=== PATIENT | female | born 1980 | race Caucasian/White ===

== ENCOUNTER → 2016-08-09 | Outpatient (CLI) | payer OTHER ==
[2016-08-09 19:19] LABS: PROLACTIN 13.3 NG/ML
[2016-08-10 14:13] LABS: HIV SCRN NEGATIVE (NEGATIVE); HIV SCRN1 NEGATIVE (NEGATIVE)
[2016-08-10 14:14] LABS: CONTROL LINE INT CTR LINE PRESENT
== END ==
LOC: M WUC 13:00
PROVIDERS: ATTEND Nurse Practitioner Women's Health
DX: Z11.3 Encounter for screening for infections with a predominantly sexual mode of transmission (principal); N92.1 Excessive and frequent menstruation with irregular cycle

== ENCOUNTER 2016-08-26 15:47 | Emergency (ER) | payer OTHER ==
[~2016-08-26] VITALS: Ht 165.1 cm; Wt 74.8 kg
[2016-08-26] MEDS ORDERED: TOPA50TA7 PO (15:56)
[2016-08-26] MEDS ORDERED: CITA20TA4 PO (15:56)
[2016-08-26] MEDS ORDERED: TRAZ100T4 PO (15:56)
[2016-08-26 17:34] VITALS: BP 116/81
[2016-08-26] MEDS ORDERED: DICL75TA PO (17:48)
--- NOTE | 2016-08-26 17:56 | REP ---
Clinical: Lower back pain. Technique: AP, lateral, bilateral oblique and coned-down views of the lumbosacral spine. Findings: The moderate degenerative changes of the visualized lower thoracic spine including anterior spurring and endplate sclerosis/disc space narrowing. The lumbar spine demonstrates satisfactory alignment with minimal multilevel endplate sclerosis as well as mild hypertrophic facet changes at the L5-S1 level. There is no evidence for acute fracture / compression injury or subluxation. Impression: Degenerative changes. No acute fracture / compression injury or subluxation. Signed by Mike Oquendo MD 08/26/2016 05:47 P
== END 2016-08-26 17:56 | disposition home or self-care (01) ==
LOC: M ED 17:20
DX: M54.5 Low back pain (principal); R51 Headache; Z79.899 Other long term (current) drug therapy; Z87.891 Personal history of nicotine dependence

== ENCOUNTER 2016-12-06 21:10 | Emergency (ER) | payer OTHER ==
[~2016-12-06] VITALS: Ht 165.1 cm; Wt 74.1 kg
[~2016-12-06 21:10] MED LIST: CITA20TA4 PO; DICL75TA PO; TOPA50TA8 PO; TRAZ-136 PO
[2016-12-06] MEDS ORDERED: NS 1,000 ML IV SCH (22:19)
[2016-12-06 22:46] LABS: BASO % 0.8 % (0.0-1.0); EOS # 0.1 K/mm3 (0.0-0.50); EOS % 1.9 % (0.0-3.0); LARGE UNSTAINED CELL # 0.1 K/mm3 (0.0-0.4); LARGE UNSTAINED CELL % 1.9 % (0.0-4.0); LYMPH # 2.3 K/mm3 (1.5-4.5); LYMPH % 34.7 % (24.0-44.0); MEAN CORPUSCULAR HEMOGLOBIN 30.1 pg (27.0-33.0); MEAN CORPUSCULAR HGB CONC 33.5 g/dl (32.0-36.5); MEAN CORPUSCULAR VOLUME 89.7 fl (80.0-96.0); MONO # 0.5 K/mm3 (0.0-0.8); MONO % 7.9 % (0.0-5.0); NEUTROPHILS # 3.3 K/mm3 (1.8-7.7); NEUTROPHILS % 52.9 % (36.0-66.0); PLATELET COUNT, AUTOMATED 285 k/mm3 (150-450); RED CELL DISTRIBUTION WIDTH 12.6 % (11.5-14.5); WHITE BLOOD COUNT 6.2 K/mm3 (4.0-10.0)
[2016-12-06 22:47] LABS: CONTROL LINE UCG INT CTR LINE PRESENT
[2016-12-06 23:13] LABS: ALBUMIN 4.1 GM/DL (3.2-5.2); ALBUMIN/GLOBULIN RATIO 1.37 (1.00-1.93); ALKALINE PHOSPHATASE 62 U/L (45-117); ALT/SGPT 26 U/L (12-78); ANION GAP 6 MEQ/L (8-16); AST/SGOT 13 U/L (15-37); BILIRUBIN,DIRECT < 0.1 MG/DL (0.0-0.2); BILIRUBIN,TOTAL 0.2 MG/DL (0.2-1.0); BLOOD UREA NITROGEN 17 MG/DL (7-18); CALCIUM LEVEL 8.4 MG/DL (8.5-10.1); CARBON DIOXIDE LEVEL 24 MEQ/L (21-32); CHLORIDE LEVEL 109 MEQ/L (98-107); CREATININE FOR GFR 0.77 MG/DL (0.55-1.02); GLOMERULAR FILTRATION RATE > 60.0 (>60); GLUCOSE, FASTING 101 MG/DL (70-105); POTASSIUM SERUM 3.6 MEQ/L (3.5-5.1); SODIUM LEVEL 139 MEQ/L (136-145); TOTAL PROTEIN 7.1 GM/DL (6.4-8.2)
[2016-12-06] MEDS ORDERED: ISOVUE-370 76% 100ML VIAL (Q9967) As Ordered ONE (23:42)
--- NOTE | 2016-12-07 | REPUSA ---
CT of the abdomen and pelvis with contrast Clinical statement: Pain. Technique: Multiple axial CT images were obtained from the base of the lungs through the floor of the pelvis utilizing 5 mm axial slices after administration of nonionic intravenous contrast. Coronal an d sagittal reconstructions were also obtained. Comparison: None. Findings: Chest: The visualized lung bases are clear. Abdomen: The liver, spleen, pancreas, kidneys, gallbladder, and adrenal glands are unremarkable. The aorta is within normal limits. There is no evidence of abdominal lymphadenopathy or ascites. Pelvis: There is focal bowel wall thickening and inflammation surrounding a diverticulum in the proxi mal sigmoid colon. There is no evidence of perforation or abscess. There is no evidence of bowel obst ruction. The urinary bladder is within normal limits. The other pelvic structures appear grossly inta ct. There is no evidence of pelvic lymphadenopathy or ascites. Bones: There are no suspicious osseous abnormalities seen. Impression: Small focus of acute sigmoid diverticulitis as described. No evidence of abscess or perfo ration.
[2016-12-07] MEDS ORDERED: CIPR-249 PO (00:21)
[2016-12-07] MEDS ORDERED: FLAG500T PO (00:21)
[2016-12-07 00:23] VITALS: BP 92/53
[2016-12-07] MEDS ORDERED: metroNIDAZOLE (FLAGYL) 500 MG TAB PO ONE (00:30)
[2016-12-07] MEDS ORDERED: CIPROFLOXACIN 500 MG TAB PO ONE (00:30)
== END 2016-12-07 00:33 | disposition home or self-care (01) ==
LOC: M ED 21:10
DX: K57.32 Diverticulitis of large intestine without perforation or abscess without bleeding (principal); F41.9 Anxiety disorder, unspecified; Z79.899 Other long term (current) drug therapy
CPT/HCPCS: 74177; 80048; 80076; 83690; 84703; 85025; 99283; Q9967

== ENCOUNTER 2017-05-06 11:37 | Day surgery (SDC) | payer OTHER ==
[~2017-05-06] VITALS: Ht 165.1 cm; Wt 71.2 kg
[~2017-05-06 11:37] MED LIST changes: +CIPR-249 PO; +ECHI125C PO; +FLAG500T PO; +PROBCAP4 PO; +VITA100067 PO; +VITA100072 PO; +VITA500T PO
[2017-05-06] MEDS ORDERED: NS 1,000 ML IV ONE (12:00)
[2017-05-06] MEDS ORDERED: LIDOCAINE 2% INJ 100 MG/5 ML SDV (FOR ANES.) As Ordered ONE (13:17)
[2017-05-06] MEDS ORDERED: PROPOFOL 200 MG/20 ML VIAL As Ordered ONE (13:17)
--- NOTE | 2017-05-06 14:00 | ROOR ---
Patient Name: Maria Elena Linn Procedure Date: 05/06/2017 1:11 PM Date of : 1980 Age: 36 Room: [facility] Gender: Female Note Status: Finalized Procedure: Colonoscopy Indications: Evaluation on imaging study of clinically significant abnormality, Abnormal CT of the GI tract Providers: Dylan Berger MD Referring MD: BE CRUZ Requesting Provider: Medicines: Monitored Anesthesia Care Complications: No immediate complications. Procedure: Pre-Anesthesia Assessment: - Prior to the procedure, a History and Physical was performed, and patient medications and allergies were reviewed. The patient is competent. The risks and benefits of the procedure and the sedation options and risks were discussed with the patient. All questions were answered and informed consent was obtained. Patient identification and proposed procedure were verified by the physician, the nurse and the anesthesiologist in the procedure room. Mental Status Examination: alert and oriented. Airway Examination: normal oropharyngeal airway and neck mobility. Respiratory Examination: clear to auscultation. CV Examination: normal. Prophylactic Antibiotics: The patient does not require prophylactic antibiotics. Prior Anticoagulants: The patient has taken no previous anticoagulant or antiplatelet agents. ASA Grade Assessment: II - A patient with mild systemic disease. After reviewing the risks and benefits, the patient was deemed in satisfactory condition to undergo the procedure. The anesthesia plan was to use monitored anesthesia care (MAC). Immediately prior to administration of medications, the patient was re-assessed for adequacy to receive sedatives. The heart rate, respiratory rate, oxygen saturations, blood pressure, adequacy of pulmonary ventilation, and response to care were monitored throughout the procedure. The physical status of the patient was re-assessed after the procedure. The Colonoscope was introduced through the anus and advanced to the terminal ileum, with identification of the appendiceal orifice and IC valve. The colonoscopy was performed without difficulty. The patient tolerated the procedure well. The quality of the bowel preparation was good. The ileocecal valve, appendiceal orifice, and rectum were photographed. Scope insertion time was 3 minutes. Scope withdrawal time was 8 minutes. The total duration of the procedure was 12 minutes. Findings: The perianal and digital rectal examinations were normal. The terminal ileum appeared normal. Multiple small and large-mouthed diverticula were found from sigmoid to descending colon. Teresa-diverticular erythema was seen. There was no evidence of diverticular bleeding. External and internal hemorrhoids were found during retroflexion. The hemorrhoids were small. Impression: - The examined portion of the ileum was normal. - Moderate diverticulosis from sigmoid to descending colon. Teresa-diverticular erythema was seen. There was no evidence of diverticular bleeding. - External and internal hemorrhoids. - No specimens collected. Recommendation: - Patient has a contact number available for emergencies. The signs and symptoms of potential delayed complications were discussed with the patient. Return to normal activities tomorrow. Written discharge instructions were provided to the patient. - High fiber diet. - Continue present medications. - Repeat colonoscopy at age 49 for screening purposes. No routine follow up in GI clinic. - Return to primary care physician. Dylan Berger MD Dylan Berger MD 05/06/2017 2:00:34 PM This report has been signed electronically. Number of Addenda: 0 Note Initiated On: 05/06/2017 1:11 PM Estimated Blood Loss: Estimated blood loss: none.
[2017-05-06 14:05] VITALS: BP 129/80
== END 2017-05-06 14:20 | disposition home or self-care (01) ==
LOC: M OPP 11:37
PROVIDERS: ATTEND Internal Medicine Gastroenterology
DX: R93.3 Abnormal findings on diagnostic imaging of other parts of digestive tract (principal); K57.30 Diverticulosis of large intestine without perforation or abscess without bleeding; K64.8 Other hemorrhoids; Z79.899 Other long term (current) drug therapy

== ENCOUNTER → 2017-08-29 | Outpatient (CLI) | payer OTHER ==
[2017-08-31 08:06] LABS: HEPATITIS BE ANTIGEN Negative (Negative)
[2017-08-31 11:38] LABS: HEPATITIS C VIRUS ABY INDEX 0.1 INDEX (<0.8)
[2017-08-31 11:38] LABS: HIV 1&2 SCREEN CENTAUR NEGATIVE (NEGATIVE)
== END ==
LOC: M WUC 17:59
DX: Z11.3 Encounter for screening for infections with a predominantly sexual mode of transmission (principal)
CPT/HCPCS: 87350

== ENCOUNTER → 2017-08-30 | Outpatient (REF) | payer OTHER ==
[2017-08-30 19:42] LABS: BASO # 0.1 10^3/uL (0.0-0.2); BASO % 0.8 % (0.0-1.0); EOS # 0.1 10^3/uL (0.0-0.50); EOS % 0.9 % (0.0-3.0); HEMOGLOBIN 12.8 g/dl (12.0-15.5); IMMATURE GRANULOCYTE % 0.3 % (0-3.0); LYMPH % 30.7 % (24.0-44.0); MEAN CORPUSCULAR HEMOGLOBIN 29.8 pg (27.0-33.0); MEAN CORPUSCULAR HGB CONC 33.7 g/dl (32.0-36.5); MEAN CORPUSCULAR VOLUME 88.6 fl (80.0-96.0); MONO # 0.5 10^3/uL (0.0-0.8); MONO % 7.7 % (0.0-5.0); NEUTROPHILS # 3.8 10^3/uL (1.8-7.7); NEUTROPHILS % 59.6 % (36.0-66.0); PLATELET COUNT, AUTOMATED 282 10^3/uL (150-450); RED BLOOD COUNT 4.29 10^6/uL (4.00-5.40); RED CELL DISTRIBUTION WIDTH 12.6 % (11.5-14.5); WHITE BLOOD COUNT 6.4 10^3/uL (4.0-10.0)
[2017-08-30 20:35] LABS: ALBUMIN 4.3 GM/DL (3.2-5.2); ALBUMIN/GLOBULIN RATIO 1.26 (1.00-1.93); ALKALINE PHOSPHATASE 54 U/L (45-117); ALT/SGPT 21 U/L (12-78); ANION GAP 7 MEQ/L (8-16); AST/SGOT 11 U/L (7-37); BILIRUBIN,TOTAL 0.3 MG/DL (0.2-1.0); BLOOD UREA NITROGEN 14 MG/DL (7-18); CALCIUM LEVEL 8.5 MG/DL (8.5-10.1); CARBON DIOXIDE LEVEL 21 MEQ/L (21-32); CHLORIDE LEVEL 113 MEQ/L (98-107); CREATININE FOR GFR 0.81 MG/DL (0.55-1.30); GLOMERULAR FILTRATION RATE > 60.0 (>60); GLUCOSE, FASTING 89 MG/DL (70-100); POTASSIUM SERUM 3.9 MEQ/L (3.5-5.1); SODIUM LEVEL 141 MEQ/L (136-145); TOTAL PROTEIN 7.7 GM/DL (6.4-8.2)
== END ==
LOC: M LABNEURO 13:13
DX: F43.22 Adjustment disorder with anxiety (principal)

== ENCOUNTER → 2017-10-27 | Outpatient (CLI) | payer OTHER ==
[2017-10-27 20:34] LABS: ERYTHROCYTE SEDIMENTATION RATE 6 mm/hr (0-20)
[2017-10-27 20:43] LABS: COMPLEMENT C3 106 MG/DL (90-180)
[2017-10-27 20:43] LABS: COMPLEMENT C4 21.9 MG/DL (10-40); RHEUMATOID FACTOR QUANT < 10.0 IU/ML (<15.0)
[2017-11-01 00:07] LABS: COMPLEMENT TOTAL (CH50) 52 U/mL (>41)
[2017-11-01 07:23] LABS: DRVV SCREEN 38.3 SEC
[2017-11-01 07:27] LABS: PTT LUPUS TYPE ANTICOAG SCREEN 0.9 (0-1.2)
[2017-11-01 14:13] LABS: ANA (HEP2) Positive (.); ANTI DOUBLE STRAND-DNA AB 1 IU/mL (0-9); ANTI-HISTONE ANTIBODIES 0.3 Units (0.0-0.9); ANTINUCLEAR ANTIBODIES DIRECT Negative (Negative); BETA-2 GLYCOPROTEIN I ABY IGA <9 (0-25); BETA-2 GLYCOPROTEIN I ABY IGG <9 (0-20); BETA-2 GLYCOPROTEIN I ABY IGM <9 (0-32); CARDIOLIPIN IGA ANTIBODY <9 APL U/mL (0-11); CARDIOLIPIN IGG ANTIBODY <9 GPL U/mL (0-14); CARDIOLIPIN IGM ANTIBODY <9 MPL U/mL (0-12); CYCLIC CITRULLINATED PEPTIDE 8 units (0-19); RNP ANTIBODIES 0.3 AI (0.0-0.9); SJOGREN'S ANTI SS-A <0.2 AI (0.0-0.9); SJOGREN'S ANTI SS-B <0.2 AI (0.0-0.9); SMITH ANTIBODIES <0.2 AI (0.0-0.9)
== END ==
LOC: M WUC 18:20
DX: G43.909 Migraine, unspecified, not intractable, without status migrainosus (principal)
CPT/HCPCS: 86255

== ENCOUNTER 2017-12-25 18:49 | Emergency (ER) | payer OTHER ==
[2017-12-25] MEDS: AZITHROMYCIN 250 MG TAB PO (19:52)
== END 2017-12-25 20:04 | disposition home or self-care (01) ==
LOC: M ED 18:49
DX: J20.9 Acute bronchitis, unspecified (principal); F33.9 Major depressive disorder, recurrent, unspecified; Z88.0 Allergy status to penicillin
CPT/HCPCS: 99283

== ENCOUNTER 2018-02-09 16:43 | Emergency (ER) | payer OTHER | END 2018-02-09 18:29 | disposition home or self-care (01) | LOC: M ED 16:43 | DX: M43.06 Spondylolysis, lumbar region (principal); F41.9 Anxiety disorder, unspecified; R51 Headache; Z79.899 Other long term (current) drug therapy; Z88.0 Allergy status to penicillin | CPT/HCPCS: 72110 ==

== ENCOUNTER 2018-10-18 18:05 | Emergency (ER) | payer OTHER ==
[~2018-10-18] VITALS: Ht 165.1 cm; Wt 70.5 kg
[~2018-10-18 18:05] MED LIST changes: +BENZ200C70 PO; -CITA20TA4 PO; +CITA20TA6 PO; +KETO10TAB PO; -TRAZ-136 PO; +TRAZ-163 PO; +VALI5TAB PO; +VENTAER INH; +VITA100018 PO; -VITA100072 PO; +ZITHTAB PO
[2018-10-18 20:03] LABS: BASO # 0.1 10^3/uL (0.0-0.2); BASO % 0.7 % (0.0-1.0); EOS # 0.1 10^3/uL (0.0-0.50); EOS % 0.7 % (0.0-3.0); HEMATOCRIT 38.1 % (36.0-47.0); HEMOGLOBIN 12.9 g/dl (12.0-15.5); LYMPH # 2.2 10^3/uL (1.5-4.5); LYMPH % 29.6 % (24.0-44.0); MEAN CORPUSCULAR HEMOGLOBIN 30.2 pg (27.0-33.0); MEAN CORPUSCULAR HGB CONC 33.9 g/dl (32.0-36.5); MEAN CORPUSCULAR VOLUME 89.2 fl (80.0-96.0); MONO # 0.6 10^3/uL (0.0-0.8); MONO % 7.7 % (0.0-5.0); NEUTROPHILS # 4.5 10^3/uL (1.8-7.7); NEUTROPHILS % 60.9 % (36.0-66.0); PLATELET COUNT, AUTOMATED 257 10^3/uL (150-450); RED BLOOD COUNT 4.27 10^6/uL (4.00-5.40); WHITE BLOOD COUNT 7.4 10^3/uL (4.0-10.0)
[2018-10-18 20:42] LABS: ALBUMIN 3.9 GM/DL (3.2-5.2); ALT/SGPT 17 U/L (12-78); BILIRUBIN,DIRECT < 0.1 MG/DL (0.0-0.2); BILIRUBIN,TOTAL 0.3 MG/DL (0.2-1.0); BLOOD UREA NITROGEN 14 MG/DL (7-18); CALCIUM LEVEL 8.9 MG/DL (8.5-10.1); CARBON DIOXIDE LEVEL 23 MEQ/L (21-32); CHLORIDE LEVEL 109 MEQ/L (98-107); CREATININE FOR GFR 0.81 MG/DL (0.55-1.30); GLOMERULAR FILTRATION RATE > 60.0 (>60); GLUCOSE, FASTING 81 MG/DL (70-100); LIPASE 113 U/L (73-393); POTASSIUM SERUM 3.5 MEQ/L (3.5-5.1); SODIUM LEVEL 139 MEQ/L (136-145); TOTAL PROTEIN 6.9 GM/DL (6.4-8.2)
[2018-10-18 20:44] LABS: HCG, SERUM QUALITATIVE NEGATIVE (NEGATIVE)
[2018-10-18] MEDS ORDERED: NS 1,000 ML IV ONE (22:15)
[2018-10-18] MEDS ORDERED: MORPHINE 4 MG/ML 1ML VIAL/SYRINGE (J2270) IV ONE (22:15)
[2018-10-18] MEDS ORDERED: ISOVUE-370 76% 100ML VIAL (Q9967) As Ordered ONE (22:58)
--- NOTE | 2018-10-19 00:23 | REPVR ---
EXAM: CT Abdomen and Pelvis With Contrast EXAM DATE/TIME: 10/18/2018 10:06 PM CLINICAL HISTORY: 38 years old, female; Abdominal pain; Localized; Lower; Additional info: Lower abd pain, HX diverticulitits TECHNIQUE: Imaging protocol: Axial computed tomography images of the abdomen and pelvis with intravenous contrast. Coronal and sagittal reformatted images were created and reviewed. Radiation optimization: All CT scans at this facility use at least one of these dose optimization techniques: automated exposure control; mA and/or kV adjustment per patient size (includes targeted exams where dose is matched to clinical indication); or iterative reconstruction. Contrast material: ISO; Contrast volume: 100 ml; Contrast route: AC; COMPARISON: CT ABD/PEL W/IV CONTRAST ONLY 12/06/2016 11:43 PM FINDINGS: Lungs: Mild dependent linear stranding and groundglass, likely due to atelectasis. ABDOMEN: Liver: Diffuse hepatic steatosis. Gallbladder and bile ducts: No radiodense gallstones. No biliary ductal dilatation. Pancreas: Unremarkable. Spleen: Unremarkable. Adrenals: Unremarkable. Kidneys and ureters: 8mm low density left renal lesion, too small to characterize. No radiodense calculi. No hydronephrosis. Stomach and bowel: Scattered colonic diverticula without evidence of diverticulitis. No obstruction. No bowel wall thickening. No pneumatosis. Appendix: Normal. PELVIS: Bladder: Unremarkable. Reproductive: Probable involuting right ovarian corpus luteal cyst. ABDOMEN and PELVIS: Intraperitoneal space: Trace nonspecific free pelvic fluid, likely physiologic. No organized fluid collection. No free air. Bones/joints: No acute osseous abnormality. Mild degenerative changes. Bilateral L5 pars defects. Soft tissues: Small, fat-containing umbilical and right inguinal hernias. Vasculature: Unremarkable. No aneurysm. Lymph nodes: No pathologically enlarged lymph nodes. IMPRESSION: 1. No CT evidence of acute intra-abdominal or pelvic pathology. 2. Additional findings, as above. COMMENT: Consistent with the [employer]'s Incidental Findings Committee Report (J Am Indira Radiol 2010): Unless the patient's specific circumstances suggest otherwise, any liver lesion 0.5 cm or less, any cystic kidney lesion less than 1.0 cm, and/or any adrenal lesion 1.0 cm or less not otherwise characterized in this report as possessing suspicious or indeterminate imaging features is/are highly likely to be benign and do not require follow-up imaging or biopsy. Electronically signed by: Mian Puentes On 10/19/2018 00:23:23 AM
[2018-10-19 01:04] VITALS: BP 100/67
--- NOTE | 2018-10-19 13:43 | ED PDOC ---
Post-Departure Follow-Up evon martin faxed formal report of ct abd/p for fu Bora Rodriguez MD October 19, 2018 13:43
== END 2018-10-19 01:06 | disposition home or self-care (01) ==
LOC: M ED 18:05
DX: R10.30 Lower abdominal pain, unspecified (principal); R11.0 Nausea; Z87.19 Personal history of other diseases of the digestive system; Z88.0 Allergy status to penicillin; Z91.018 Allergy to other foods
CPT/HCPCS: 36415; 74177; 80048; 80076; 81001; 83690; 84703; 85025; 96361; 96374; 99284; J2270; Q9967

== ENCOUNTER 2019-01-03 20:17 | Emergency (ER) | payer OTHER ==
[~2019-01-03] VITALS: Ht 165.1 cm; Wt 68.0 kg
[~2019-01-03 20:17] MED LIST changes: -TRAZ-163 PO; +TRAZ-257 PO
[2019-01-03 20:43] LABS: BASO # 0.1 10^3/uL (0.0-0.2); BASO % 0.7 % (0.0-1.0); EOS # 0.1 10^3/uL (0.0-0.50); EOS % 0.4 % (0.0-3.0); HEMATOCRIT 36.3 % (36.0-47.0); HEMOGLOBIN 12.4 g/dl (12.0-15.5); LYMPH # 1.6 10^3/uL (1.5-4.5); LYMPH % 12.8 % (24.0-44.0); MEAN CORPUSCULAR HEMOGLOBIN 29.7 pg (27.0-33.0); MEAN CORPUSCULAR HGB CONC 34.2 g/dl (32.0-36.5); MEAN CORPUSCULAR VOLUME 86.8 fl (80.0-96.0); MONO # 0.7 10^3/uL (0.0-0.8); MONO % 5.9 % (0.0-5.0); NEUTROPHILS # 9.7 10^3/uL (1.8-7.7); NEUTROPHILS % 79.8 % (36.0-66.0); PLATELET COUNT, AUTOMATED 246 10^3/uL (150-450); RED BLOOD COUNT 4.18 10^6/uL (4.00-5.40); WHITE BLOOD COUNT 12.2 10^3/uL (4.0-10.0)
[2019-01-03 20:58] LABS: PROTHROMBIN TIME 12.9 SECONDS (11.8-14.0)
[2019-01-03 21:14] LABS: ALT/SGPT 40 U/L (12-78); BILIRUBIN,TOTAL 0.6 MG/DL (0.2-1.0); BLOOD UREA NITROGEN 19 MG/DL (7-18); CALCIUM LEVEL 8.8 MG/DL (8.5-10.1); CARBON DIOXIDE LEVEL 28 MEQ/L (21-32); CHLORIDE LEVEL 106 MEQ/L (98-107); CK-MB VALUE MASS 1.6 NG/ML (<3.6); CPK CREATINE PHOSPHOKINASE 147 U/L (26-192); CREATININE FOR GFR 0.79 MG/DL (0.55-1.30); GLOMERULAR FILTRATION RATE > 60.0 (>60); GLUCOSE, FASTING 135 MG/DL (70-100); LIPASE 138 U/L (73-393); MB/CK RELATIVE INDEX 1.09 (< OR =4); POTASSIUM SERUM 3.4 MEQ/L (3.5-5.1); SODIUM LEVEL 139 MEQ/L (136-145); TOTAL PROTEIN 7.2 GM/DL (6.4-8.2); TROPONIN I < 0.02 NG/ML (< 0.10)
[2019-01-03] MEDS ORDERED: GI COCKTAIL 50ML BTL(HYOSCYAMINE/MAALOX/LIDOCAINE VISCOUS)(1:3:1) PO ONE (21:15)
[2019-01-03 21:25] LABS: HCG, SERUM QUALITATIVE NEGATIVE (NEGATIVE)
--- NOTE | 2019-01-03 21:56 | ECGEPIP ---
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
--- NOTE | 2019-01-04 02:27 | REP ---
Clinical: Acute chest pain . Comparison: 01/18/2014 . Findings: The mediastinum and cardiac silhouette are stable and within normal limits for portable technique. The lung carter are clear without acute consolidation, effusion, or pneumothorax. Skeletal structures are intact. Impression: No acute cardiopulmonary process appreciated. Electronically Signed by Mike Oquendo MD 01/04/2019 02:18 A
[2019-01-04 03:02] LABS: CK-MB VALUE MASS 1.2 NG/ML (<3.6); CPK CREATINE PHOSPHOKINASE 118 U/L (26-192); MB/CK RELATIVE INDEX 1.02 (< OR =4); TROPONIN I < 0.02 NG/ML (< 0.10)
[2019-01-04 04:36] VITALS: BP 114/74
--- NOTE | 2019-01-04 07:24 | ECGEPIP ---
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
== END 2019-01-04 04:43 | disposition home or self-care (01) ==
LOC: M ED 20:17
DX: R07.9 Chest pain, unspecified (principal); R00.0 Tachycardia, unspecified; Z91.010 Allergy to peanuts; Z88.0 Allergy status to penicillin; Z79.899 Other long term (current) drug therapy

== ENCOUNTER → 2019-10-10 | Outpatient (CLI) | payer BC, OTHER ==
[~2019-10-10] MED LIST changes: +VITA-243 PO; -VITA500T PO
--- NOTE | 2019-10-11 03:54 | REP ---
Clinical: Renal cyst. Technique: Real time smart scale evaluation using curved array transducer. Findings: The bilateral kidneys are essentially normal in contour, size, echogenicity, and reniform shape without hydronephrosis, nephrolithiasis, perinephric fluid, or obvious mass lesion. Right kidney measures 10.0 x 6.2 x 4.0 cm without evidence for cyst. Left kidney measures 10.7 x 6.1 x 5.1 cm and includes 8 mm upper pole cyst. Bladder is collapsed. Impression: 8 mm left renal cyst. Electronically Signed by Mike Oquendo MD 10/11/2019 03:45 A
== END ==
LOC: M RAD 12:30
PROVIDERS: ATTEND Internal Medicine Nephrology
DX: N18.1 Chronic kidney disease, stage 1 (principal); N28.1 Cyst of kidney, acquired; Z68.30 Body mass index [BMI] 30.0-30.9, adult

== ENCOUNTER 2020-01-15 15:00 | Emergency (ER) | payer BC ==
[2020-01-15] MEDS ORDERED: ISOVUE-370 76% 100ML VIAL ONE (16:03)
[2020-01-15] MEDS ORDERED: METOCLOPRAMIDE INJ 10MG/2ML VIAL (J2765 PER 1) ONE (16:42)
--- NOTE | 2020-02-08 13:58 | ECGEPIP ---
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
[2020-02-12 14:06] LABS: BASO % 0.7 % (0.0-1.0); EOS # 0.1 10^3/uL (0.0-0.5); EOS % 1.5 % (0.0-3.0); HEMOGLOBIN 14.3 g/dl (12.0-15.5); LYMPH # 2.1 10^3/uL (1.5-5.0); LYMPH % 31.1 % (24.0-44.0); MEAN CORPUSCULAR HEMOGLOBIN 30.1 pg (27.0-33.0); MEAN CORPUSCULAR VOLUME 88.4 fl (80.0-96.0); MONO # 0.6 10^3/uL (0.0-0.8); MONO % 9.6 % (0.0-5.0); NEUTROPHILS # 3.8 10^3/uL (1.5-8.5); NEUTROPHILS % 56.5 % (36.0-66.0); PLATELET COUNT, AUTOMATED 323 10^3/uL (150-450); RED BLOOD COUNT 4.75 10^6/uL (4.00-5.40); WHITE BLOOD COUNT 6.7 10^3/uL (4.0-10.0)
[2020-02-12 14:07] LABS: BASO # 0.1 10^3/uL (0.0-0.2); INR 0.86; PARTIAL THROMBOPLASTIN TIME 34.3 SECONDS (25.0-38.4); PROTHROMBIN TIME 11.9 SECONDS (11.8-14.0)
[2020-02-15 11:45] LABS: ALBUMIN 4.3 GM/DL (3.2-5.2); ALT/SGPT 31 IU/L (0-32); BILIRUBIN,DIRECT < 0.1 MG/DL (0.0-0.2); BILIRUBIN,TOTAL 0.2 MG/DL (0.2-1.0); CK-MB VALUE MASS < 1.0 NG/ML (<3.6); CPK CREATINE PHOSPHOKINASE 65 U/L (26-192); MB/CK RELATIVE INDEX 1.53 (< OR =4); TOTAL PROTEIN 7.7 GM/DL (6.4-8.2); TROPONIN I < 0.02 NG/ML (< 0.10)
== END 2020-01-15 19:00 | disposition home or self-care (01) ==
LOC: M ED 15:00
DX: G44.59 Other complicated headache syndrome (principal); F41.9 Anxiety disorder, unspecified; F32.9 Major depressive disorder, single episode, unspecified; R94.31 Abnormal electrocardiogram [ECG] [EKG]
CPT/HCPCS: 70450; 70496; 70498; 70551; 71045; 80047; 80076; 82550; 82553; 84484; 84702; 85025; 85610; 85730; 86850; 86900; 86901; 93005; 96374; 99285; J2765; Q9967

== ENCOUNTER → 2021-05-04 | Outpatient (CLI) | payer BC ==
--- NOTE | 2021-05-04 18:13 | REP ---
INDICATION: CHEST DISCOMFORT, PALPITATIONS. COMPARISON: Portable chest, 01/03/2019. TECHNIQUE: Upright PA and lateral chest images were obtained. FINDINGS: The lungs are clear. The heart borders, mediastinum and pulmonary vascular pattern normal. The upper abdominal bowel gas pattern is normal. There are no significant bony abnormalities of the chest. IMPRESSION: No evidence of acute cardiopulmonary pathology. <Electronically signed by Jacek Vides > 05/04/21 [id number]
== END ==
LOC: M WUC 14:48
PROVIDERS: ATTEND Physician Assistant
DX: R00.2 Palpitations (principal)

== ENCOUNTER → 2021-07-07 | Outpatient (CLI) | payer BC ==
[2021-07-07 22:52] LABS: HCG, SERUM QUALITATIVE NEGATIVE (NEGATIVE)
== END ==
LOC: M WUC 15:22
PROVIDERS: ATTEND Nurse Practitioner Family
DX: R07.2 Precordial pain (principal); R94.31 Abnormal electrocardiogram [ECG] [EKG]

== ENCOUNTER → 2022-04-09 | Outpatient (CLI) | payer BC | LOC: M WHC 14:07 | PROVIDERS: ATTEND Physician Assistant | DX: Z12.31 Encounter for screening mammogram for malignant neoplasm of breast (principal) ==